=== PATIENT | male | born 2000 | race Two or more races ===

== ENCOUNTER 2022-12-04 02:43 | Emergency (ER) | payer OTHER ==
[~2022-12-04] VITALS: Ht 175.3 cm; Wt 74.8 kg
[2022-12-04] MEDS ORDERED: KETO10TA2 PO (04:31)
[2022-12-04] MEDS ORDERED: CEPHALEXIN500 MG PO (04:31)
== END 2022-12-04 04:39 ==
LOC: ER 02:43
DX: S01.322A Laceration with foreign body of left ear, initial encounter (principal); W20.8XXA Other cause of strike by thrown, projected or falling object, initial encounter; Y93.89 Activity, other specified; Y92.89 Other specified places as the place of occurrence of the external cause
CPT/HCPCS: 12014; 96372; 99284; J0696

== ENCOUNTER 2022-12-11 12:01 | Emergency (ER) | payer OTHER ==
[~2022-12-11] VITALS: Ht 172.7 cm; Wt 73.9 kg
[~2022-12-11 12:01] MED LIST: CEPHALEXIN500 MG PO; KETO10TA2 PO
== END 2022-12-11 14:06 | disposition home or self-care (01) ==
LOC: ER 12:01
DX: Z48.02 Encounter for removal of sutures (principal)

== ENCOUNTER 2022-12-13 11:43 | Emergency (ER) | payer OTHER ==
[~2022-12-13] VITALS: Ht 172.7 cm; Wt 73.9 kg
== END 2022-12-13 14:50 | disposition home or self-care (01) ==
LOC: ER 11:43
DX: Z48.02 Encounter for removal of sutures (principal)